=== PATIENT | male | born 1955 | race Caucasian/White ===

== ENCOUNTER 2020-01-18 01:57 | Emergency (ER) | payer SELFPAY ==
[2020-01-18 01:55] VITALS: BP 154/100; PULSE 86; RESP 16; TEMP 36.7; O2SAT 99
--- NOTE | 2020-01-18 02:13 | W.ED.GENAD ---
Discharge Plan Disposition Patient Disposition: HOME Condition: Good Discharge Details Chief Complaint: Laceration Clinical Impression: Bleeding from varicose vein Primary Care Provider: Amanda,Local ED Provider: Javier Laura Home Meds and New Rx's Prescriptions: No Action aspirin 325 mg Tablet 325 mg PO DAILY RF: 0 Discharge Instructions Additional Instructions: At this time the bleeding has thankfully stopped from your varicose vein. Please make sure to keep this area bandaged and wrapped. If the bleeding does recur apply firm pressure for 1 to 2 hours. There are varicose vein specialist that can be found online that would potentially offer options of ablation and surgery for these veins for the future. If you notice any worsening of your symptoms, or any new symptoms such as vomiting, diarrhea, fever, chills, shortness of breath, chest pain, numbness, weakness, or fainting , please return immediately to the emergency department for reevaluation. Please follow up with your primary care provider as soon as possible for reassessment and reevaluation. As always, it was a pleasure participating in your medical care today. Medical Decision Making 64-year-old male with a past medical history of cardiac disease, on a daily aspirin, who presents today for evaluation of bleeding from a small varicose vein on his right foot. Patient states that after he took his shoes off earlier today he noticed a small amount of bleeding about an hour or so prior to arrival, EMS was called, the patient was brought in for further evaluation. At home tight bandage of duct tape was placed on his foot. Aside for the bleeding the patient has no complaints. He denies lightheadedness, palpitations, syncope, chest pain, shortness of breath, numbness tingling or weakness. He denies any trauma to the foot. He states that he has had these varicose veins ever since he had his vein harvest/surgery in the right lower extremity. Physical exam demonstrates chronic varicosities in the right lower extremity, there is no evidence of active bleeding at this time. Good capillary refill, good neurovascular exam. With no continued bleeding Band-Aid was placed over the previous varicosity, then a subsequent 4 x 4 and Coban wrap was applied. Patient tolerated this well. At this time with normal vital signs, no symptoms of syncope or lightheadedness, I see no indication for further laboratory work-up or evaluation. Discussed the importance of being as gentle as possible to his feet to avoid any trauma or skin breakdown. We also discussed potential for contacting physicians at [facility] or [facility] for varicose vein treatment. I have extensively reviewed the treatment plan and discharge instructions with the patient. I have addressed all patient concerns at this time. The patient was made aware of what symptoms to monitor for that would warrant a return to the emergency department. Discussed the plan with the patient, they demonstrate verbal understanding and agreement with our assessment and plan at this time. HPI General Date/Time Provider Initiated Documentation: 01/18/20 01:59. HPI Narrative: 64-year-old male with a past medical history of cardiac disease, on a daily aspirin, who presents today for evaluation of bleeding from a small varicose vein on his right foot. Patient states that after he took his shoes off earlier today he noticed a small amount of bleeding about an hour or so prior to arrival, EMS was called, the patient was brought in for further evaluation. At home tight bandage of duct tape was placed on his foot. Aside for the bleeding the patient has no complaints. He denies lightheadedness, palpitations, syncope, chest pain, shortness of breath, numbness tingling or weakness. He denies any trauma to the foot. He states that he has had these varicose veins ever since he had his vein harvest/surgery in the right lower extremity. No other complaints at this time. No other modifying factors. Related Data Home Medications Medication Instructions Recorded Confirmed aspirin 325 mg PO DAILY 01/18/20 01/18/20 Allergies Allergy/AdvReac Type Severity Reaction Status Date / Time Penicillins Allergy Severe Hives Unverified 01/18/20 01:59 General Stated Complaint: Laceration HUNG: 4 Review of Systems All systems reviewed & are unremarkable except as noted in HPI and below REPLACED BY [facility] Medical History Hypertension (Chronic) Varicose veins of left lower extremity (Acute) Social History Smoking/Tobacco Use Status: Former Tobacco Use Quit Date: 07/07/90 Alcohol Intake: current Alcohol Intake frequency: a few times a month Substance use type: does not use Do you feel safe at home: Yes Do you feel safe in your relationship?: Yes Exam Narrative Exam Narrative: 1.Const: Well-nourished, Well-developed, appearing stated age 2.Eyes: PERRL, no conjunctival injection, and symmetrical lids. 3.ENT: Atraumatic external nose and ears. Moist MM. Neck: Symmetric, trachea midline, No thyromegaly. 4.CVS: +S1/S2, No murmurs or gallops. Peripheral pulses 2+ and equal in all extremities. Brisk capillary refill in all extremities. 5.RESP: Unlabored respiratory effort. Clear to auscultation bilaterally. No wheezes rales or rhonchi 6.GI: Soft, Nontender/Nondistended, No hepatosplenomegaly. No guarding or rebound. 7.MSK: Normocephalic/Atraumatic, Extremities w/o deformity or ttp No cyanosis or clubbing, Normal movement of all extremities 8.Skin: Warm, Dry. Patient has multiple chronic varicosities in the right lower extremity over the foot on the lateral aspect. After duct tape was removed there was actually no evidence of continued bleeding. Small varicose vein was present near the surface which the patient states was the original source of the bleeding. No bleeding is present at this time. Capillary refill is brisk in all toes. No bleeding at this time. 9.Neuro: surgical assist II-XII grossly intact. Sensation grossly intact, no focal neurologic deficits. 10.Psych: (AAO) x3. Appropriate mood and affect Course Vital Signs Vital signs: Vital Signs Temperature 36.7 C 01/18/20 01:55 Pulse 86 01/18/20 01:55 Respiratory Rate 16 01/18/20 01:55 Blood Pressure 154/100 H 01/18/20 01:55 Pulse Oximetry 99 01/18/20 01:55 Temperature 36.7 C 01/18/20 01:55 Temperature Source Skin 01/18/20 01:55 Pulse 86 01/18/20 01:55 Respiratory Rate 16 01/18/20 01:55 Blood Pressure 154/100 H 01/18/20 01:55 Pulse Oximetry 99 01/18/20 01:55 Pain Level 2 01/18/20 01:55
== END 2020-01-18 02:35 | disposition home or self-care (01) ==
PROVIDERS: Emergency Provider Student in an Organized Health Care Education/Training Program
DX: I83.891 Varicose veins of right lower extremity with other complications (principal); I10 Essential (primary) hypertension
CPT/HCPCS: 99283